=== PATIENT | female | born 1960 | race Caucasian/White ===

== ENCOUNTER → 2021-02-16 | Outpatient (CLI) | payer BC ==
[2021-02-16 18:30] LABS: Free Thyroxine 1.07 ng/dL (0.70-1.60)
[2021-02-16 18:35] LABS: Thyroid Stimulating Hormone 1.27 uIU/mL (0.360-4.800)
== END ==
LOC: LAB 17:27 → LAB SHORT 17:27
PROVIDERS: Hospitalist
DX: E03.9 Hypothyroidism, unspecified (principal)
CPT/HCPCS: 84439; 84443

== ENCOUNTER → 2021-05-23 | Outpatient (CLI) | payer BC ==
[2021-05-23 16:07] LABS: CHOL/HDL RATIO 3.4; Cholesterol 144 mg/dL (50-200); HDL Cholesterol 42 mg/dL (>39); LDL/HDL RATIO 1.8; Low Density Lipoprotein Chol 75 mg/dL (0-110); Triglycerides 133 mg/dL (30-160); Very Low Density Lipoprot Chol 26 mg/dL (6-32)
== END | disposition home or self-care (01) ==
LOC: LAB 10:08 → LAB SHORT 10:08
PROVIDERS: Hospitalist
DX: E78.2 Mixed hyperlipidemia (principal)
CPT/HCPCS: 80061

== ENCOUNTER → 2022-05-25 | Outpatient (CLI) | payer BC ==
[~2022-05-25] MED LIST: FISH OIL 1,2001 EAC7 PO; LEVSOD25; OMEP20ER PO; PARO20 PO; VITAMIN D5000 UNIT PO
[2022-05-26 07:08] LABS: CHOL/HDL RATIO 6.9; Cholesterol 323 mg/dL (50-200); HDL Cholesterol 47 mg/dL (>39); LDL/HDL RATIO 4.5; Low Density Lipoprotein Chol 211 mg/dL (0-110); Triglycerides 323 mg/dL (30-160); Triiodothyronine, Free 2.71 pg/mL (2.18-3.98); Very Low Density Lipoprot Chol 64 mg/dL (6-32)
== END | disposition home or self-care (01) ==
LOC: LAB SHORT 10:30 → LAB 10:30
PROVIDERS: Hospitalist
DX: R73.9 Hyperglycemia, unspecified (principal); E03.9 Hypothyroidism, unspecified; E78.00 Pure hypercholesterolemia, unspecified
CPT/HCPCS: 80061; 83036; 84439; 84443; 84481

== ENCOUNTER → 2024-06-23 | Outpatient (CLI) | payer BC ==
[2024-06-24 14:56] LABS: Free Thyroxine 1.08 ng/dL (0.70-1.60); Thyroid Stimulating Hormone 0.899 uIU/mL (0.360-4.800)
== END | disposition home or self-care (01) ==
LOC: LAB SHORT 13:50 → LAB 13:50
PROVIDERS: Hospitalist
DX: E03.9 Hypothyroidism, unspecified (principal)
CPT/HCPCS: 84439; 84443